=== PATIENT | female | born 1955 | race Two or more races ===

== ENCOUNTER 2022-12-28 15:55 | Emergency (ER) | payer OTHER ==
[~2022-12-28] VITALS: Ht 170.2 cm; Wt 91.2 kg
== END 2022-12-28 20:33 | disposition home or self-care (01) ==
LOC: ER 15:55
DX: S62.109A Fracture of unspecified carpal bone, unspecified wrist, initial encounter for closed fracture (principal); W18.39XA Other fall on same level, initial encounter; Y93.89 Activity, other specified; Y92.488 Other paved roadways as the place of occurrence of the external cause; M25.562 Pain in left knee; M25.561 Pain in right knee
CPT/HCPCS: 29125; 73110; 73130; 73560; 96372; 99284; J1885

== ENCOUNTER 2023-05-24 18:15 | Emergency (ER) | payer OTHER ==
[~2023-05-24] VITALS: Ht 167.6 cm; Wt 91.6 kg
[2023-05-24] MEDS ORDERED: HYDROXYUREA500 MG PO (19:31)
[2023-05-24] MEDS ORDERED: SPIRONOLACTONE100 MG PO (19:31)
[2023-05-24] MEDS ORDERED: FUROSEMIDE40 MG PO (19:31)
== END 2023-05-24 21:23 | disposition home or self-care (01) ==
LOC: ER 18:15
DX: L03.116 Cellulitis of left lower limb (principal); L03.115 Cellulitis of right lower limb; Z91.040 Latex allergy status
CPT/HCPCS: 96372; 99284; J0690

== ENCOUNTER 2023-08-06 18:28 | Emergency (ER) | payer OTHER ==
[~2023-08-06] VITALS: Ht 172.7 cm; Wt 88.5 kg
[~2023-08-06 18:28] MED LIST: FUROSEMIDE40 MG PO; HYDROXYUREA500 MG PO; SPIRONOLACTONE100 MG PO
[2023-08-06] MEDS ORDERED: CEFTRIAXONE SODIUM 1,000 MG VIAL IM STA (22:36)
[2023-08-06] MEDS ORDERED: CEPHALEXIN500 M1 PO (22:47)
== END 2023-08-06 22:50 | disposition home or self-care (01) ==
LOC: ER 18:29
DX: L03.119 Cellulitis of unspecified part of limb (principal)